=== PATIENT | female | born 1975 | race Caucasian/White ===

== ENCOUNTER 2024-01-28 09:23 | Outpatient (CLI) | payer OTHER ==
[~2024-01-28 09:23] MED LIST: METH-35 PO
== END 2024-01-28 23:59 | disposition home or self-care (01) ==
LOC: RAD 09:23
PROVIDERS: ATTEND Nurse Practitioner Family
DX: E04.2 Nontoxic multinodular goiter (principal); E03.9 Hypothyroidism, unspecified; R73.9 Hyperglycemia, unspecified; E78.5 Hyperlipidemia, unspecified
CPT/HCPCS: 76536